=== PATIENT | female | born 1955 | race Caucasian/White ===

== ENCOUNTER 2017-12-20 21:19 | Emergency (ER) | payer BC ==
[~2017-12-20] VITALS: Ht 170.2 cm; Wt 70.3 kg
[~2017-12-20 21:19] MED LIST: CARB100CH; ERGO400 PO; HYDACE5 PO; LANS15EC; NAPR500 PO; OXYACE5T PO; Percocet 5-3251 EACH PO; RANI150 PO; RXHYDACE PO; SIMV10 PO
[2017-12-20] MEDS ORDERED: Lisinopril2.5 MG (21:24)
[2017-12-20] MEDS ORDERED: VITAMIN D10000 UNIT PO (21:25)
[2017-12-20 21:52] LABS: BASOPHILS ABSOLUTE AUTO 0.06 K/mm3 (0.00-0.23); BASOPHILS PERCENT AUTO 0 % (0-2); EOSINOPHILS ABSOLUTE AUTO 0.08 K/mm3 (0.00-0.68); EOSINOPHILS PERCENT AUTO 1 % (0-6); Hematocrit 39.9 % (33.0-51.0); Hemoglobin 13.8 g/dL (11.5-16.0); IMMATURE GRAN ABSOLUTE AUTO 0.05 K/mm3 (0.00-0.10); IMMATURE GRAN PERCENT AUTO 0 % (0-1); LYMPHOCYTES ABSOLUTE AUTO 2.23 K/mm3 (0.84-5.20); LYMPHOCYTES PERCENT AUTO 15 % (21-46); MONOCYTES ABSOLUTE AUTO 0.92 K/mm3 (0.16-1.47); MONOCYTES PERCENT AUTO 6 % (4-13); Mean Corpuscular HGB 31.7 pg (26.0-34.0); Mean Corpuscular HGB Conc 34.6 g/dL (31.5-36.5); Mean Corpuscular Volume 92 fL (80-100); Mean Platelet Volume 11.6 fL (9.1-12.4); NEUTROPHILS ABSOLUTE AUTO 11.32 K/mm3 (1.96-9.15); NEUTROPHILS PERCENT AUTO 77 % (41-73); Platelet Count 259 K/mm3 (150-400); RDW Coefficient Variation 12.5 % (11.7-14.2); RDW Standard Deviation 42.4 fL (35.1-46.3); Red Blood Cell Count 4.35 M/mm3 (3.80-5.20); White Blood Cell Count 14.66 K/mm3 (4.00-11.30)
[2017-12-20 22:06] LABS: Alanine Aminotransfer (ALT/SGP 67 U/L (12-78); Albumin, Blood 3.5 g/dL (3.4-5.0); Alk Phos 87 U/L (50-136); Anion Gap 9 mmol/L (6-16); Aspartate Aminotrans (AST/SGOT 43 U/L (12-37); Bilirubin, Total 0.4 mg/dL (0.1-1.0); Blood Urea Nitrogen 13 mg/dL (8-24); Bun/Creatinine Ratio 14.2 (12.0-20.0); CO2, Blood 25 mmol/L (21-32); Calcium, Blood 8.8 mg/dL (8.5-10.1); Chloride, Blood 109 mmol/L (98-108); Creatinine, Blood 0.92 mg/dL (0.40-1.00); Globulin, Blood 3.5 g/dL (2.2-4.0); Glomerular Filtration Rate >60 (60-); Glucose, Blood 139 mg/dL (70-99); Potassium, Blood 3.4 mmol/L (3.5-5.5); Sodium, Blood 143 mmol/L (136-145); Troponin I <0.015 ng/mL (0.000-0.040)
== END 2017-12-20 23:23 | disposition home or self-care (01) ==
LOC: ER 21:19
PROVIDERS: Emergency Medicine
DX: R07.89 Other chest pain (principal); M25.512 Pain in left shoulder; E78.5 Hyperlipidemia, unspecified; F17.210 Nicotine dependence, cigarettes, uncomplicated; Z88.6 Allergy status to analgesic agent; Z79.899 Other long term (current) drug therapy
CPT/HCPCS: 36415; 71046; 73030; 80053; 83880; 84484; 85025; 93005; 93010; 96374; 99284; J1885

== ENCOUNTER 2018-05-29 07:59 | Emergency (ER) | payer BC ==
[~2018-05-29] VITALS: Ht 170.2 cm; Wt 68.0 kg
[~2018-05-29 07:59] MED LIST changes: +Lisinopril2.5 MG; +VITAMIN D10000 UNIT PO
[2018-05-29] MEDS ORDERED: Cyclobenzaprine5 MG PO (08:26)
[2018-05-29] MEDS ORDERED: ALPR.25 PO (08:26)
[2018-05-29] MEDS ORDERED: EC-Naprosyn500 MG PO (10:45)
[2018-05-29] MEDS ORDERED: Norco 10-325 T1 EACH PO (10:45)
[2018-05-29] MEDS ORDERED: Zofran4 MG PO (10:45)
[2018-05-29] MEDS ORDERED: CEPH500 PO (12:30)
== END 2018-05-29 11:01 | disposition home or self-care (01) ==
LOC: ER 07:59
DX: M51.34 Other intervertebral disc degeneration, thoracic region (principal); F17.210 Nicotine dependence, cigarettes, uncomplicated; Z88.6 Allergy status to analgesic agent; Z79.899 Other long term (current) drug therapy
CPT/HCPCS: 71101; 72080; 72100; 96372; 99283-25; J1170; J2550

== ENCOUNTER 2018-05-29 11:15 | Emergency (ER) | payer OTHER, BC ==
[~2018-05-29] VITALS: Ht 170.2 cm; Wt 68.0 kg
[~2018-05-29 11:15] MED LIST changes: +ALPR.25 PO; +Cyclobenzaprine5 MG PO; +EC-Naprosyn500 MG PO; +Norco 10-325 T1 EACH PO; +Zofran4 MG PO
[2018-05-29] MEDS ORDERED: CEPH500 PO (12:30)
== END 2018-05-29 12:39 | disposition home or self-care (01) ==
LOC: ER 11:15
DX: S67.192A Crushing injury of right middle finger, initial encounter (principal); S67.194A Crushing injury of right ring finger, initial encounter; S67.196A Crushing injury of right little finger, initial encounter; S61.212A Laceration without foreign body of right middle finger without damage to nail, initial encounter; S61.214A Laceration without foreign body of right ring finger without damage to nail, initial encounter; S61.216A Laceration without foreign body of right little finger without damage to nail, initial encounter; W23.0XXA Caught, crushed, jammed, or pinched between moving objects, initial encounter; Z88.8 Allergy status to other drugs, medicaments and biological substances; Z79.899 Other long term (current) drug therapy; I10 Essential (primary) hypertension; E78.00 Pure hypercholesterolemia, unspecified; F17.210 Nicotine dependence, cigarettes, uncomplicated
CPT/HCPCS: 12001; 73130; 90471; 90714; 99283-25

== ENCOUNTER 2022-12-25 09:36 | Day surgery (SDC) | payer OTHER ==
[~2022-12-25] VITALS: Ht 170.2 cm; Wt 69.6 kg
[~2022-12-25 09:36] MED LIST changes: +CEPH500 PO
--- NOTE | 2022-12-25 10:09 | NUR ---
12/25/22 1009 Myriam Garg AT 1005 PLEDGET AT 1007
[2022-12-25 11:14] VITALS: BP 139/63
--- NOTE | 2022-12-25 11:39 | NUR ---
12/25/22 1139 Tj Torres IV REMOVED INTACT. SITE WNL.
== END 2022-12-25 11:30 | disposition home or self-care (01) ==
LOC: ORSCSDS 09:36
PROVIDERS: Ophthalmology
PROC: 08DK3ZZ Extraction of Left Lens, Percutaneous Approach (ICD-10-PCS; principal; 2022-12-25 11:00)
DX: H25.13 Age-related nuclear cataract, bilateral (principal); I10 Essential (primary) hypertension; G50.0 Trigeminal neuralgia; F17.210 Nicotine dependence, cigarettes, uncomplicated; Z79.899 Other long term (current) drug therapy
CPT/HCPCS: J2250; J3010; J3301; J7040; V2632

== ENCOUNTER 2023-01-01 09:39 | Day surgery (SDC) | payer OTHER ==
[~2023-01-01] VITALS: Ht 170.2 cm; Wt 69.6 kg
[2023-01-01 11:14] VITALS: BP 128/60
--- NOTE | 2023-01-01 11:21 | NUR ---
01/01/23 1121 Tj Torres IV REMOVED INTACT. SITE WNL.
== END 2023-01-01 11:28 | disposition home or self-care (01) ==
LOC: ORSCSDS 09:39
PROVIDERS: Ophthalmology
PROC: 08DJ3ZZ Extraction of Right Lens, Percutaneous Approach (ICD-10-PCS; principal; 2023-01-01 11:00)
DX: H25.11 Age-related nuclear cataract, right eye (principal); Z96.1 Presence of intraocular lens; I10 Essential (primary) hypertension; F17.210 Nicotine dependence, cigarettes, uncomplicated; Z79.899 Other long term (current) drug therapy
CPT/HCPCS: J1100; J2250; J2405; J3010; J3301; J7040; V2632

== ENCOUNTER 2023-05-27 12:44 | Inpatient (IN) | payer OTHER ==
[~2023-05-27] VITALS: Ht 170.2 cm; Wt 72.1 kg
[~2023-05-27 12:44] MED LIST changes: -Lisinopril2.5 MG; +Prinivil10 MG PO; -SIMV10 PO; +Zocor20 MG PO
[2023-05-27 13:42] LABS: Albumin, Blood 2.7 g/dL (3.4-5.0); Albumin/Globulin Ratio 0.7 (0.8-1.8); Bilirubin, Total 0.8 mg/dL (0.1-1.0); Calcium, Blood 8.7 mg/dL (8.5-10.1); Creatinine, Blood 0.71 mg/dL (0.40-1.00); Globulin, Blood 4.1 g/dL (2.2-4.0); Magnesium, Blood 2.3 mg/dL (1.6-2.4); Potassium, Blood 4.5 mmol/L (3.5-5.5); Total Protein, Blood 6.8 g/dL (6.4-8.2)
[2023-05-27 14:25] LABS: BASOPHILS ABSOLUTE AUTO 0.05 K/mm3 (0.00-0.23); BASOPHILS PERCENT AUTO 0 % (0-2); EOSINOPHILS PERCENT AUTO 0 % (0-6); Hematocrit 39.8 % (33.0-51.0); Hemoglobin 13.3 g/dL (11.5-16.0); IMMATURE GRAN ABSOLUTE AUTO 0.07 K/mm3 (0.00-0.10); IMMATURE GRAN PERCENT AUTO 0 % (0-1); LYMPHOCYTES ABSOLUTE AUTO 1.19 K/mm3 (0.84-5.20); LYMPHOCYTES PERCENT AUTO 7 % (21-46); MONOCYTES ABSOLUTE AUTO 1.56 K/mm3 (0.16-1.47); MONOCYTES PERCENT AUTO 10 % (4-13); Mean Corpuscular HGB 29.8 pg (26.0-34.0); Mean Corpuscular HGB Conc 33.4 g/dL (31.5-36.5); Mean Corpuscular Volume 89 fL (80-100); Mean Platelet Volume 11.3 fL (9.1-12.4); NEUTROPHILS ABSOLUTE AUTO 13.48 K/mm3 (1.96-9.15); NEUTROPHILS PERCENT AUTO 83 % (41-73); Platelet Count 363 K/mm3 (150-400); RDW Coefficient Variation 12.4 % (11.7-14.2); RDW Standard Deviation 40.8 fL (35.1-46.3); Red Blood Cell Count 4.47 M/mm3 (3.80-5.20); White Blood Cell Count 16.35 K/mm3 (4.00-11.30)
[2023-05-27 18:19] LABS: Source, Urine Clean Catch
[2023-05-27 18:22] LABS: Appearance, Urine Cloudy (Clear); Bilirubin, Urine Neg (Neg); Blood, Urine 2+ (Neg); Color, Urine Yellow (P-Yellow); Glucose Qualitative, Urine Neg (Neg); Ketones, Urine 1+ (Neg); Leukocyte Esterase, Urine 1+ (Neg); Nitrite, Urine Neg (Neg); Protein, Urine 2+ (Neg); Specific Gravity, Urine 1.015 (1.003-1.022); Urobilinogen, Urine 4+ (Normal)
[2023-05-27 18:34] LABS: Bacteria Many /hpf; Squamous Epithelial Cells Rare /hpf (Few)
[2023-05-27] MEDS ORDERED: HYDROCODONE-AC1 EA19 PO (21:03)
[2023-05-27 21:18] VITALS: BP 148/67
[2023-05-27] MEDS ORDERED: THERA-D2000 UNIT PO (21:35)
[2023-05-27] MEDS ORDERED: ARTIFICIAL TEAR15 M2 BOTHEYES (21:36)
[2023-05-28] VITALS (8 sets, daily range): BP systolic 100–130; BP diastolic 48–89
--- NOTE | 2023-05-28 02:12 | NUR ---
05/27/232146 PT ARRIVED TO ROOM FROM ER IN STABLE CONDITION. PT REPORTS PAIN OF 7/10 IN SHOULDERS AND CHEST PRESSURE AT 5/10. TROPONINS ARE NOT ELEVATED AT THIS TIME. PT WAS JUST MEDICATED WITH NORCO AT 1930. PT DENIES NEED FOR PAIN MEDS AT THIS TIME. PT ENCOURAGED TO CALL IF THAT CHANGES. SCD'S PLACED ON PT. TELE NSR AT 78. NO OTHER APPARENT SIGNS OF DISTRESS. CALL LIGHT IS IN REACH.
--- NOTE | 2023-05-28 02:14 | NUR ---
0000 PT LYING IN BED, EYES CLOSED. APPEARS TO BE RESTING. BREATHING IS EVEN, UNLABORED. NO APPARENT SIGNS OF DISTRESS. CALL LIGHT IS IN REACH.
--- NOTE | 2023-05-28 02:15 | NUR ---
0124 PT REQUESTED AND RECIEVED PAIN MEDS, WILL EVAL FOR EFFECT. NO OTHER APPARENT SIGNS OF DISTRESS. CALL LIGHT IS IN REACH.
[2023-05-28 05:32] LABS: BASOPHILS ABSOLUTE AUTO 0.04 K/mm3 (0.00-0.23); BASOPHILS PERCENT AUTO 0 % (0-2); EOSINOPHILS ABSOLUTE AUTO 0.02 K/mm3 (0.00-0.68); EOSINOPHILS PERCENT AUTO 0 % (0-6); Hematocrit 36.5 % (33.0-51.0); Hemoglobin 12.3 g/dL (11.5-16.0); IMMATURE GRAN ABSOLUTE AUTO 0.06 K/mm3 (0.00-0.10); IMMATURE GRAN PERCENT AUTO 0 % (0-1); LYMPHOCYTES ABSOLUTE AUTO 2.03 K/mm3 (0.84-5.20); LYMPHOCYTES PERCENT AUTO 13 % (21-46); MONOCYTES ABSOLUTE AUTO 1.69 K/mm3 (0.16-1.47); MONOCYTES PERCENT AUTO 11 % (4-13); Mean Corpuscular HGB 29.7 pg (26.0-34.0); Mean Corpuscular HGB Conc 33.7 g/dL (31.5-36.5); Mean Corpuscular Volume 88 fL (80-100); Mean Platelet Volume 11.8 fL (9.1-12.4); NEUTROPHILS ABSOLUTE AUTO 12.02 K/mm3 (1.96-9.15); NEUTROPHILS PERCENT AUTO 76 % (41-73); Platelet Count 314 K/mm3 (150-400); RDW Coefficient Variation 12.7 % (11.7-14.2); RDW Standard Deviation 41.1 fL (35.1-46.3); Red Blood Cell Count 4.14 M/mm3 (3.80-5.20); White Blood Cell Count 15.86 K/mm3 (4.00-11.30)
--- NOTE | 2023-05-28 06:45 | NUR ---
0400 PT LYING IN BED, EYES CLOSED, WAKES EASILY TO VERBAL STIMULI. NO APPARENT SIGNS OF DISTRESS. CALL LIGHT IS IN REACH.
--- NOTE | 2023-05-28 06:46 | NUR ---
PT IS AAO X 4, ON RA, REPORTS SHOULDER PAIN AND CHEST PRESSURE, GOT NORCO X 3. TELE NSR.
--- NOTE | 2023-05-28 06:47 | NUR ---
0524 PT REQUESTED AND RECIEVED PAIN MEDS, WILL EVAL FOR EFFECT. NO OTHER APPARENT SIGNS OF DISTRESS. CALL LIGHT IS IN REACH. NO OTHER CHANGES THIS SHIFT.
--- NOTE | 2023-05-28 09:20 | NUR ---
Transfer NOte: Pt arrived to room [id number] via bed. A/O x4. Pale, diapheretic. HR reg at this time, NSR rate in the 80's. BP stable. Pt C/O chest pressure that is much worse with laying back and deep breathing. Pt sat forward and pain improved. Pt has low grade temp 100.5. Will medicate with tylenol per orders. Ice pack applied to back of neck, pt states this feels good. Family and patient oriented to room, unit, plan of care and different tests that are planned including stress test, echo and CT PE study. Pt NPO for stress test. Call light in reach. Denies needs. Will continue to monitor.
--- NOTE | 2023-05-28 09:47 | NUR ---
[facility] PT HR 174 BPM. APPEARED TO BE SVT. CHECKED MONITOR. WENT TO PT. SHE WAS PALE, HOLDING HER HEAD AND STATED, " I DON'T FEEL GOOD," EKG STARTED. VS STARTED. DR VASQUES CALLED. PT CONVERTED TO NSR BEFORE EKG COMPLETED. DR VASQUES AT BEDSIDE. TRANSFER TO PCU REQUESTED. EXPLAINED M,OVE TO FAMILY. TRANSFER VIA BED TO PCU 13. BEDSIDE REPORT GIVEN TO KHANG AMOS. PT MAINTAINED NSR DURING MOVE. CONTINUE POC.,
--- NOTE | 2023-05-28 17:37 | NUR ---
SHIFT SUMMARY: Pt sitting up in bed at this time with family at bedside. States that she is feeling much better this evening. HR has remained in NSR in the 70's. BP stable. Has been afebrial this afternoon. BIox has remained >90% on RA. Pt does have CP with some activity and deep breathing, but this subsides quickly without any intervention. Pt had the stress portion of her stress test today, echo and CT-PE study. Tolerated all studies well. Denies needs at this time. Stable at end of shift. Will report to night RN.
[2023-05-29 03:27] VITALS: BP 107/64
[2023-05-29 04:14] LABS: Hematocrit 36.4 % (33.0-51.0); Hemoglobin 12.1 g/dL (11.5-16.0); Mean Corpuscular HGB 29.7 pg (26.0-34.0); Mean Corpuscular HGB Conc 33.2 g/dL (31.5-36.5); Mean Corpuscular Volume 89 fL (80-100); Mean Platelet Volume 11.8 fL (9.1-12.4); Platelet Count 331 K/mm3 (150-400); RDW Coefficient Variation 12.7 % (11.7-14.2); Red Blood Cell Count 4.08 M/mm3 (3.80-5.20); White Blood Cell Count 15.58 K/mm3 (4.00-11.30)
--- NOTE | 2023-05-29 04:54 | NUR ---
shift summary this rn assumed care at 1900. vital signs stable. tele sr. patient is alert and oriented x4. perrla. patient reports off and on shoulder pain throughout this rn shift. pain meds received per emar. patient reports no chest pain/pressure. patient reports no shortness of breath. see shift assessment for further detials. no acue changes this shift. patient is able to make needs known and uses call light appropriately. call light within reach.
[2023-05-29 05:38] LABS: Anion Gap 6 mmol/L (6-16); Blood Urea Nitrogen 10 mg/dL (8-24); Bun/Creatinine Ratio 14.1 (12.0-20.0); CO2, Blood 26 mmol/L (21-32); Calcium, Blood 8.6 mg/dL (8.5-10.1); Chloride, Blood 108 mmol/L (98-108); Creatinine, Blood 0.71 mg/dL (0.40-1.00); Glomerular Filtration Rate 93 (60-); Glucose, Blood 104 mg/dL (70-99); Potassium, Blood 3.8 mmol/L (3.5-5.5); Sodium, Blood 140 mmol/L (136-145)
[2023-05-29 05:50] LABS: C-Reactive Protein, High Sens. >190.000 mg/L (0.000-3.000)
[2023-05-29 09:15] VITALS: BP 132/43
[2023-05-29] MEDS ORDERED: CEPH500 PO (13:15)
[2023-05-29] MEDS ORDERED: COLCHICINE0.6 MG PO (13:15)
[2023-05-29] MEDS ORDERED: METO25ER PO (13:16)
--- NOTE | 2023-05-29 13:41 | NUR ---
DISCHARGE NOTE PT DC'D HOME IN THE CARE OF HER VIA WHEELCHAIR TO VEHICLE. DISCHARGE EDUCATION COMPLETED INCLUDING FOLLOW UP APPOINTMENTS AND MEDICATION LIST. PT'S AT BEDSIDE FOR TEACHING WELL. BOTH STATE THEY HAVE NO QUESTIONS OR CONCERNS ABOUT DISCHARGE EDUCATION. IV TO LFA REMOVED, CATHETER INTACT. PT ABLE TO AMBULATE IN ROOM WITH MINIMAL ASSISTANCE. ALL BELONGINGS SENT HOME WITH PT. NO FURTHER DISCHARGE NEEDS IDENTIFIED AT THIS TIME.
[2023-05-29 13:47] VITALS: BP 118/54
[2023-05-31 08:08] LABS: COMPLEMENT C3, SERUM 203 mg/dL (82-167); COMPLEMENT C4, SERUM 15 mg/dL (12-38)
[2023-05-31 11:08] LABS: ANA DIRECT Negative (Negative); ANTI-DSDNA ANTIBODIES 2 IU/mL (0-9); RNP ANTIBODIES 0.7 AI (0.0-0.9); SJOGREN'S ANTI-SS-A <0.2 AI (0.0-0.9); SJOGREN'S ANTI-SS-B <0.2 AI (0.0-0.9); SMITH ANTIBODIES <0.2 AI (0.0-0.9)
== END 2023-05-29 13:45 | disposition home or self-care (01) | DRG 315 ==
LOC: ER 12:44 → MEDS 12:45 → PCU 05-28 09:29
PROVIDERS: Emergency Medicine; Internal Medicine; Nurse Practitioner Acute Care; Student in an Organized Health Care Education/Training Program; ADMIT Internal Medicine
DX: I30.0 Acute nonspecific idiopathic pericarditis (principal); I47.10 Supraventricular tachycardia, unspecified; N39.0 Urinary tract infection, site not specified; I48.0 Paroxysmal atrial fibrillation; R55 Syncope and collapse; G89.29 Other chronic pain; I10 Essential (primary) hypertension; B96.20 Unspecified Escherichia coli [E. coli] as the cause of diseases classified elsewhere; F17.211 Nicotine dependence, cigarettes, in remission; R77.8 Other specified abnormalities of plasma proteins; E78.5 Hyperlipidemia, unspecified; Z88.8 Allergy status to other drugs, medicaments and biological substances; Z79.811 Long term (current) use of aromatase inhibitors; Z79.891 Long term (current) use of opiate analgesic; Z79.899 Other long term (current) drug therapy
CPT/HCPCS: 36415; 71045; 71046; 71260; 78452; 80048; 80053; 81001; 83735; 84145; 84443; 84484; 85025; 85027; 85651; 86141; 86160; 86225; 86235; 86430; 87077; 87086; 87186; 93005; 93010; 93017; 93246; 96365; 96366; 96372; 99285-25; A9270; A9500; C8929; G0378; J0696; J0706; J1650; J2405; J2785; J7030; Q9957; Q9967

== ENCOUNTER 2023-06-07 18:30 | Inpatient (IN) | payer OTHER ==
[~2023-06-07] VITALS: Ht 170.2 cm; Wt 71.3 kg
[~2023-06-07 18:30] MED LIST changes: +ARTIFICIAL TEAR15 M2 BOTHEYES; +COLCHICINE0.6 MG PO; +HYDROCODONE-AC1 EA19 PO; +METO25ER PO; +THERA-D2000 UNIT PO
[2023-06-07] MEDS ORDERED: COLCRYS0.6 M1 PO (18:42)
[2023-06-07] MEDS ORDERED: Simvastatin20 MG PO (18:43)
[2023-06-07 19:08] LABS: Source, Urine Clean Catch
[2023-06-07 19:09] LABS: BASOPHILS ABSOLUTE AUTO 0.05 K/mm3 (0.00-0.23); BASOPHILS PERCENT AUTO 0 % (0-2); EOSINOPHILS ABSOLUTE AUTO 0.02 K/mm3 (0.00-0.68); EOSINOPHILS PERCENT AUTO 0 % (0-6); Hemoglobin 13.3 g/dL (11.5-16.0); IMMATURE GRAN ABSOLUTE AUTO 0.16 K/mm3 (0.00-0.10); IMMATURE GRAN PERCENT AUTO 1 % (0-1); LYMPHOCYTES ABSOLUTE AUTO 2.29 K/mm3 (0.84-5.20); LYMPHOCYTES PERCENT AUTO 10 % (21-46); MONOCYTES ABSOLUTE AUTO 2.11 K/mm3 (0.16-1.47); MONOCYTES PERCENT AUTO 9 % (4-13); Mean Corpuscular HGB 29.8 pg (26.0-34.0); Mean Corpuscular HGB Conc 34.1 g/dL (31.5-36.5); Mean Corpuscular Volume 87 fL (80-100); Mean Platelet Volume 11.5 fL (9.1-12.4); NEUTROPHILS ABSOLUTE AUTO 18.48 K/mm3 (1.96-9.15); NEUTROPHILS PERCENT AUTO 80 % (41-73); Platelet Count 461 K/mm3 (150-400); RDW Coefficient Variation 13.3 % (11.7-14.2); RDW Standard Deviation 42.6 fL (35.1-46.3); Red Blood Cell Count 4.46 M/mm3 (3.80-5.20); White Blood Cell Count 23.11 K/mm3 (4.00-11.30)
[2023-06-07 19:18] LABS: D-Dimer, Quantitative 3.34 mg/L FEU (0.00-0.52); International Normalized Ratio 1.27; Prothrombin Time Results 13.2 Sec (9.7-11.5)
[2023-06-07 19:26] LABS: Free Thyroxine 1.26 ng/dL (0.70-1.60); Magnesium, Blood 1.9 mg/dL (1.6-2.4)
[2023-06-07 19:30] LABS: Albumin, Blood 2.3 g/dL (3.4-5.0); Albumin/Globulin Ratio 0.5 (0.8-1.8); Bilirubin, Total 0.6 mg/dL (0.1-1.0); Bun/Creatinine Ratio 26.8 (12.0-20.0); Calcium, Blood 8.6 mg/dL (8.5-10.1); Creatinine, Blood 0.6 mg/dL (0.40-1.00); Phosphorus, Blood 2.5 mg/dL (2.5-4.9); Potassium, Blood 4.2 mmol/L (3.5-5.5); Thyroid Stimulating Hormone 0.552 uIU/mL (0.360-4.800); Total Protein, Blood 7.3 g/dL (6.4-8.2)
[2023-06-07 19:41] LABS: Appearance, Urine Clear (Clear); Bilirubin, Urine Neg (Neg); Blood, Urine 1+ (Neg); Glucose Qualitative, Urine Neg (Neg); Ketones, Urine Neg (Neg); Leukocyte Esterase, Urine Neg (Neg); Nitrite, Urine Neg (Neg); Protein, Urine Neg (Neg); Urobilinogen, Urine NORM (Normal); pH, Urine 6.5 (5.0-8.0)
[2023-06-07 19:51] LABS: Influenza A, PCR NEGATIVE (NEGATIVE); Influenza B, PCR NEGATIVE (NEGATIVE); Resp Syncytial Virus, PCR NEGATIVE (NEGATIVE); SARS-Cov-2 (COVID-19) PCR, MMC NEGATIVE (NEGATIVE)
[2023-06-07 20:28] LABS: Color, Urine Pale Yellow (P-Yellow)
[2023-06-07 20:30] LABS: Bacteria Rare /hpf; Red Blood Cells, Urine 0-2 /hpf (0-2); Squamous Epithelial Cells Few /hpf (Few); White Blood Cells, Urine 0-2 /hpf (0-5)
[2023-06-08] VITALS (61 sets, daily range): BP systolic 73–135; BP diastolic 42–83
[2023-06-08] MEDS ORDERED: HYDROCODONE-AC1 EA19 PO (02:14)
[2023-06-08 04:07] LABS: Hematocrit 37.6 % (33.0-51.0); Hemoglobin 12.9 g/dL (11.5-16.0); Mean Corpuscular HGB 29.9 pg (26.0-34.0); Mean Corpuscular HGB Conc 34.3 g/dL (31.5-36.5); Mean Corpuscular Volume 87 fL (80-100); Mean Platelet Volume 11.4 fL (9.1-12.4); Platelet Count 465 K/mm3 (150-400); RDW Coefficient Variation 13.3 % (11.7-14.2); RDW Standard Deviation 42.6 fL (35.1-46.3); Red Blood Cell Count 4.32 M/mm3 (3.80-5.20)
[2023-06-08 04:24] LABS: Bun/Creatinine Ratio 16.5 (12.0-20.0); Calcium, Blood 7.9 mg/dL (8.5-10.1); Creatinine, Blood 0.67 mg/dL (0.40-1.00); Potassium, Blood 3.8 mmol/L (3.5-5.5)
--- NOTE | 2023-06-08 07:15 | NUR ---
AM Assessment: Pt resting in bed with daughter at bedside. HR shows NSR in the 60's at this time. BP Soft (see VS). Pt denies dizziness or lightheadedness. C/O some chest and back pain/pressure that improves when sitting forward but gets worse with deep breathing. States that it has improved greatly since she converted to NSR last noc. IV heparin running per orders but placed on hold for thoracentisis scheduled at 1130. BT positive. Pt states that she has had diarrhea at home but has not had a BM here. Slight rash on her both left and right sides, red, non-raised small dots. Pt deines pain or itching on this amanda. General edema to bilateral hands which patient states is new. No other changes or needs. Call light in reach. Will monitor.
--- NOTE | 2023-06-08 07:20 | NUR ---
SHIFT SUMMARY: A&OX4, REPORTS FEELING FATIGUED WHEN ADMITTED TO PCU 2 FROM ED. APPEARS PALE AND DIAPHORETIC. REPORTS INTERMITTENT C/P AND CHEST PRESSURE. REPORTS FEELING SOB WITH SATS MAINTAINED > 92% ON RA. RESPIRATIONS APPEAR EVEN AND UNLABORED. HR A-FLUTTER 130-150'S. AMNIODERONE GTT AND HEPRIN GTT STARTED ORDERED. RATE CONVERTED AT APPROXIMATELY 0300. PT REPORTS IMPROVED SOB AND CHEST PRESSURE. DENIES C/P. BP CONTINUES TO BE SOFT WITH MAP > 65. DR. FAUST CALLED AT APPROXIMATELY 0400, REPORTING PT BP INCREASINGLY SOFT WITH MAP < 65, SEE RECORDED VITAL SIGNS. AMNIODERONE STOPPED. 500 ML BOLUS X [address] FAUST'S INSTRUCTIONS. PT REMAINS ASYMPTOMATIC OF SOFT BP'S. CALL LIGHT IN REACH, BED IN LOW POSITION.
[2023-06-08 12:29] LABS: Automated BF RBC Count 0.008 M/mm3 (0-0); Automated BF WBC Count 2.948 K/mm3 (0-999)
[2023-06-08 12:31] LABS: Body Fluid WBC Count 2948 /mm3 (0-999); RBC Count, Body Fluid 8000 /mm3 (0-0)
[2023-06-08 12:47] LABS: Lactate Dehydrogenase, Body Fl 142 U/L; Protein, Body Fluid 4.1 g/dL
[2023-06-08 13:26] LABS: Total Cell Count, Body Fluid 100
[2023-06-08 13:27] LABS: Appearance, Body Fluid Hazy (Clear); Color, Body Fluid Yellow (None-Yellow)
--- NOTE | 2023-06-08 15:10 | NUR ---
transfer of care: Report given to DANDRE Hawthorne. Stable at time of transfer of care. Pt had thoracentisis at around 1130 with 750ml removed. BP has been stable. HR has remained in NSR rate in the 70's at this time. Pt does have some increased pain in the L side and chest. Physician aware and new orders were obtained. Medicated per orders. No other changes at this time. Call light in reach.
--- NOTE | 2023-06-08 17:07 | NUR ---
Shift Summary Assumed care of patient at approx 1500; no acute changes noted. Pt continues to report pain to left back/shoulder, medicated per emar. Other vss. Will continue to monitor.
[2023-06-09 03:51] VITALS: BP 85/56
--- NOTE | 2023-06-09 05:03 | NUR ---
FACE MAN SUMMARY THROUGHOUT SHIFT PT A/OX4 AND PLEASANT. AROUND 2300 PT BEGAN TO COMPLAIN OF SEVERE PAIN IN LEFT BACK AND CHEST AND UNABLE TO TAKE DEEP BREATHS DUE TO PAIN, AT THIS TIME PTS SPO2 DOWN TO 80S AND PLACED ON 2LO2 FOR COMFORT, THOUGH TRANSITIONED BACK TO ROOM AIR AT TIME OF THIS NOTE. PROVIDER WAS CALLED AND TELEPHONE ORDERS PLACED FOR 1V CXR AND 25 MCG IV FENTANYL ONE TIME DOSE. PT RESPONDED WELL AND PO PAIN MEDICATED REINITIATED. PT BLOOD PRESSURES HAVE BEEN LOW AND PROVIDER CALLED AND AWARE. PT ASYMPTOMATIC WITH LOW BLOOD PRESSURES AND MAPS HAVE BEEN >60. NO OTHER ACUTE CHANGES.
[2023-06-09 07:52] VITALS: BP 115/62
[2023-06-09 11:35] VITALS: BP 109/54
[2023-06-09 16:19] VITALS: BP 132/71
--- NOTE | 2023-06-09 17:21 | NUR ---
SHIFT SUMMARY. PT HAS BEEN DOING WELL THIS SHIFT. AOX4, PLEASANT, COOPERATIVE WITH CARE. HAS HAD SOMEWHAT IMPROVED PO INTAKE BASED ON VERY LITTLE PO INTAKE NOTED ON SHIFT REPORT. PAIN HAS BEEN MOSTLY ADEQUATELY MANAGED ON CURRENT MEDICATION REGIMEN WITH OCCASIONAL BREAKTHROUGH PAIN, MOSTLY ASSOCIATED WITH LAUGHING PER PT. SBA TO COMMODE. SATURATING WELL ON ROOM AIR. VITALS HAVE REMAINED WNL THIS SHIFT, NO FEVER THUS FAR. FAMILY HAS BEEN AT BEDSIDE THROUGHOUT SHIFT. PT CALLS APPROPRIATELY AND IS ABLE TO MAKE NEEDS KNOWN. BED LOCKED IN LOWEST POSITION. CALL LIGHT LEFT WITHIN REACH
[2023-06-09 19:45] VITALS: BP 143/66
--- NOTE | 2023-06-09 22:20 | NUR ---
ASSUMED CARE THIS RN ASSUMED CARE OF PT APPROX 1900. BEDSIDE REPORT TAKEN FROM JULIO RN. PT AWAKE CONVERSING W/ FAMILY MEMBERS. A&OX4, ABLE TO COMMUNICATE NEEDS WITH STAFF. MINIMAL PO INTAKE AT DINNER. VSS. SBP 143, HR 70'S. NSR ON TELE. DENIES CHEST PAIN/PRESSURE. SPO2 >92% ON RA WHILE AWAKE, 2L O2 APPLIED WHILE PT SLEEPING DUE TO DESATS TO HIGH 80'S. ORAL TEMP 100.1; TYLENOL ADMINISTERED VIA NORCO PER EMAR. PT REPORTS 8-9/10 PAIN IN LEFT RIB REGION, MANAGED PER EMAR. SBA TO BSC AT START OF SHIFT. NO OTHER NEEDS. CALL LIGHT WITHIN REACH, BED IN LOWEST POSITION.
[2023-06-09 23:27] VITALS: BP 130/58
[2023-06-10 04:20] VITALS: BP 104/63
[2023-06-10 04:50] LABS: BASOPHILS ABSOLUTE AUTO 0.04 K/mm3 (0.00-0.23); BASOPHILS PERCENT AUTO 0 % (0-2); EOSINOPHILS ABSOLUTE AUTO 0.08 K/mm3 (0.00-0.68); EOSINOPHILS PERCENT AUTO 0 % (0-6); Hematocrit 32.1 % (33.0-51.0); Hemoglobin 10.6 g/dL (11.5-16.0); IMMATURE GRAN ABSOLUTE AUTO 0.11 K/mm3 (0.00-0.10); IMMATURE GRAN PERCENT AUTO 1 % (0-1); LYMPHOCYTES PERCENT AUTO 10 % (21-46); MONOCYTES ABSOLUTE AUTO 1.99 K/mm3 (0.16-1.47); MONOCYTES PERCENT AUTO 10 % (4-13); Mean Corpuscular HGB 29.1 pg (26.0-34.0); Mean Corpuscular Volume 88 fL (80-100); NEUTROPHILS ABSOLUTE AUTO 15.02 K/mm3 (1.96-9.15); NEUTROPHILS PERCENT AUTO 78 % (41-73); Platelet Count 384 K/mm3 (150-400); RDW Coefficient Variation 13.6 % (11.7-14.2); RDW Standard Deviation 44.3 fL (35.1-46.3); Red Blood Cell Count 3.64 M/mm3 (3.80-5.20); White Blood Cell Count 19.24 K/mm3 (4.00-11.30)
[2023-06-10 05:14] LABS: Albumin, Blood 1.9 g/dL (3.4-5.0); Anion Gap 5 mmol/L (6-16); Blood Urea Nitrogen 13 mg/dL (8-24); Bun/Creatinine Ratio 17.9 (12.0-20.0); CO2, Blood 25 mmol/L (21-32); Calcium, Blood 8.4 mg/dL (8.5-10.1); Chloride, Blood 107 mmol/L (98-108); Creatinine, Blood 0.73 mg/dL (0.40-1.00); Glomerular Filtration Rate 90 (60-); Glucose, Blood 121 mg/dL (70-99); Phosphorus, Blood 4.6 mg/dL (2.5-4.9); Potassium, Blood 4.1 mmol/L (3.5-5.5); Sodium, Blood 137 mmol/L (136-145)
--- NOTE | 2023-06-10 05:18 | NUR ---
END OF SHIFT NOTE NO ACUTE CHANGES FROM ASSUMPTION OF CARE NOTE. PT REMAINS A&OX4, CALLS APPROPRIATELY. HR 60-70'S, NSR ON TELE. BP STABLE, DENIES CHEST PAIN/PRESSURE. SPO2 >90% ON RA WHILE AWAKE, 2L NC APPLIED WHILE SLEEPING DUE TO DESATS INTO UPPER 80'S. UP TO BSC W/ 1P SBA. PT INDEPENDENTLY REPOSITIONING IN BED. PAIN MANAGED PER EMAR. CALL LIGHT WITHIN REACH, BED IN LOWEST POSITION.
[2023-06-10 08:12] VITALS: BP 111/57
[2023-06-10 09:44] VITALS: BP 103/56
--- NOTE | 2023-06-10 10:11 | NUR ---
AT ABOUT 0930, NOTIFCATION FROM [facility] THAT PT CONVERTED TO AFIB FROM NSR FOR ABOUT ~90 SECONDS BEFORE CONVERTING BACK TO NSR. VITALS TAKEN, WNL. PT REPORTS NO CHANGE IN CONDITION OTHER THAN FEELING TIRED FROM SHOWER. DENIED SOB, FATIGUE, DYSPNEA, CHEST PAIN/PRESSURE, ETC. PT CONVERTED TO AFIB FROM NSR AND THEN BACK TO NSR 2 MORE TIMES BEFORE 1000 WITH THE LONGEST EPISODE BEING ABOUT 120 SECONDS AT ~0950. CALLED DR. KAPOOR TO NOTIFY. DR. KAPOOR DIRECTED ME TO CALL DR. RIOJAS OFFICE TO INQUIRE ABOUT POSSIBLE MEDICATION CHANGE. CALLED DR. RIOJAS OFFICE AND LEFT MESSAGE WITH LAUNDRY CLERK TO CALL US BACK AT SOONEST POSSIBLE CONVENIENCE.
--- NOTE | 2023-06-10 10:17 | NUR ---
ASSUMPTION OF CARE AT 0710. PT IS AOX4, PLEASANT, COOPERATIVE WITH CARE. PAIN WAS ESCALATING THIS MORNING WITH PT RATING IT AT 9/10 BEFORE NORCO ADMINISTRATION WITH MORNING MEDICATIONS WHICH SHE SAYS HAS MADE PAIN MUCH MORE MANAGABLE. PAIN STILL SPORADICALLY PEAKS MOSTLY ASSOCIATED WITH DEEP BREATHING OR LAUGHING. PT TOOK A SHOWER THIS MORNING AND REPORTS FEELING MORE FATIGUED AFTER SHOWER. PT ALSO FEELS LIKE HER PO INTAKE HAS BEEN PROGRESSIVELY IMPROVING SINCE YESTERDAY. NOTIFICATION FROM [facility] THAT PT HAS BEEN HAVING SOME RYTHYM CHANGES STARTING AT ABOUT 0930 TODAY. SEE RELATED NOTE FOR EXPANDED DETAILS. ALL MORNING MEDICATIONS ADMINISTERED WITHOUT DIFFICULTY. AT BEDSIDE. PT COMFORTABLE IN CHAIR AT THIS TIME. CALL LIGHT LEFT WITHIN REACH.
--- NOTE | 2023-06-10 12:12 | NUR ---
LATE NOTE. SPOKE WITH DR. MOSES. DR. MOSES ORDERED ONE TIME 200 MG DOSE OF AMIODARONE WHICH WAS ADMINISTERED. ALSO INFORMED THAT CURRENT RYTHYM CHANGE ISSUES ARE LIKELY SECONDARY TO INSUFFICIENT PAIN MANAGEMENT AND RECOMMENDED BETTER PAIN CONTROL. CALLED AND SPOKE WITH DR. KAPOOR TO INFORM OF THIS AND SHE DCd NORCO TO REPLACE WITH 1-2 TABS OF PERCOCET Q4. DIRECTED THIS NURSE TO CALL HER IF PERCOCET PROVES TO BE INSUFFICIENT IN TERMS OF PAIN MANAGEMENT. ADMINISTERED FIRST TAB AND CONTINUING TO MONITOR AT THIS TIME.
[2023-06-10 16:30] VITALS: BP 118/70
--- NOTE | 2023-06-10 17:31 | NUR ---
SHIFT SUMMARY. PT HAS BEEN DOING WELL THROUGHOUT MOST OF AFTERNOON AFTER MAKING ADJUSTMENTS TO PAIN MEDICATION REGIMEN. DR. KAPOOR DISCONTINUED PERCOCET 5 MG 1-2 TABS Q4 IN FAVOR OF 10 MG 1-2 TABS Q4. PT HAS BEEN DOING BETTER ON THIS AND REPORTS LOWER PAIN GENERALLY THAN SHE HAD ON THE NORCO REGIMEN ALTHOUGH IT REMAINS EVER PRESENT TO SOME DEGREE. PT HAS BEEN IN CHAIR FOR MOST OF AFTERNOON WELL. WAS AT BEDSIDE UNTIL GOING HOME FOR THE NIGHT LATE IN THE AFTERNOON. PT DOES NOTE SOMEWHAT LOWER PO FOOD INTAKE THAN YESTERDAY ALTHOUGH SHE IS TRYING TO CONTINUE TO KEEP UP HER PO FLUID INTAKE. VITALS REMAIN STABLE. CONTINUES TO SAT WELL ON ROOM AIR. EPISODES OF CONVERTING TO AFIB HAVE SLOWED DOWN CONSIDERABLY SINCE PREVIOUS NOTE FROM EARLIER IN SHIFT. BED LOCKED IN LOWEST POSITION. CALL LIGHT LEFT WITHIN REACH.
[2023-06-10 20:10] VITALS: BP 114/63
[2023-06-11 03:40] VITALS: BP 115/74
[2023-06-11 04:14] LABS: BASOPHILS ABSOLUTE AUTO 0.04 K/mm3 (0.00-0.23); BASOPHILS PERCENT AUTO 0 % (0-2); EOSINOPHILS ABSOLUTE AUTO 0.07 K/mm3 (0.00-0.68); EOSINOPHILS PERCENT AUTO 0 % (0-6); Hematocrit 33.4 % (33.0-51.0); IMMATURE GRAN ABSOLUTE AUTO 0.15 K/mm3 (0.00-0.10); IMMATURE GRAN PERCENT AUTO 1 % (0-1); LYMPHOCYTES PERCENT AUTO 10 % (21-46); MONOCYTES ABSOLUTE AUTO 2.23 K/mm3 (0.16-1.47); MONOCYTES PERCENT AUTO 10 % (4-13); Mean Corpuscular HGB 29.8 pg (26.0-34.0); Mean Corpuscular HGB Conc 32.9 g/dL (31.5-36.5); Mean Corpuscular Volume 91 fL (80-100); Mean Platelet Volume 11.9 fL (9.1-12.4); NEUTROPHILS PERCENT AUTO 79 % (41-73); Platelet Count 465 K/mm3 (150-400); RDW Coefficient Variation 13.9 % (11.7-14.2); RDW Standard Deviation 46.1 fL (35.1-46.3); Red Blood Cell Count 3.69 M/mm3 (3.80-5.20); White Blood Cell Count 23.29 K/mm3 (4.00-11.30)
[2023-06-11 04:44] LABS: Anion Gap 8 mmol/L (6-16); Blood Urea Nitrogen 16 mg/dL (8-24); Bun/Creatinine Ratio 20.9 (12.0-20.0); CO2, Blood 25 mmol/L (21-32); Calcium, Blood 8.7 mg/dL (8.5-10.1); Chloride, Blood 101 mmol/L (98-108); Creatinine, Blood 0.77 mg/dL (0.40-1.00); Glomerular Filtration Rate 84 (60-); Glucose, Blood 140 mg/dL (70-99); Phosphorus, Blood 4.1 mg/dL (2.5-4.9); Potassium, Blood 4.1 mmol/L (3.5-5.5); Sodium, Blood 134 mmol/L (136-145)
--- NOTE | 2023-06-11 04:52 | NUR ---
END OF SHIFT NOTE NO ACUTE EVENTS THIS SHIFT. PT REMAINS A&OX4, ABLE TO COMMUNICATE NEEDS W/ STAFF. HR 80'S. NSR ON TELE W/ MULTIPLE CONVERSIONS IN AND OUT OF AFIB. SBP 110'S. REPORTS LEFT SIDED CHEST/RIB PAIN, SHARP STABBING PAIN; MANAGED PER EMAR. SPO2 >90% ON RA, 2L O2 WHILE SLEEPING. AFEBRILE. TWO EPISODES OF NAUSEA/VOMITING, MEDICATED W/ ZOFRAN PER EMAR. PT ABLE TO INDEPENDENTLY REPOSITION HERSELF IN BED. NO NEEDS AT THIS TIME. CALL LIGHT WITHIN REACH, BED IN LOWEST POSITION.
--- NOTE | 2023-06-11 11:02 | NUR ---
LATE NOTE. ASSUMED CARE OF PT AT ABOUT 0710. PT HAS BEEN DOING WELL THIS MORNING OUTSIDE OF NEW NAUSEA THAT APPEARED LAST NIGHT. PAIN HAS BEEN BETTER MANAGED ON CURRENT MEDICATION REGIMEN BUT REMAINS EVER PRESENT. PT AND THIS NURSE BELIEVE THAT NAUSEA IS PRIMARILY CAUSED BY NEW PERCOCET. PT DISCUSSED WITH DR. KAPOOR, RECOMMENDED GIVING ZOFRAN ~20 MINUTES BEFORE PO PAIN MEDICATION ADMINISTRATION. PT HAS HAD DECREASED PO FOOD INTAKE THIS MORNING DUE TO NAUSEA. BED LOCKED IN LOWEST POSITION. CALL LIGHT LEFT WITHIN REACH.
[2023-06-11 16:13] VITALS: BP 121/66
--- NOTE | 2023-06-11 17:03 | NUR ---
SHIFT SUMMARY. PT AOX4, PLEASANT, COOPERATIVE WITH CARE. HAS HAD A PRETTY GOOD DAY PAIN GRACIA. AFTER SWITCHING ZOFRAN TO Q4 PRN TO GIVE ALONGSIDE PRN PERCOCET PT REPORTS FEELING NO NAUSEA TODAY AND THAT HER PAIN IS MUCH BETTER THAN IT HAS BEEN. RUNNING NSR WITH NO REPORTED EVENTS THIS SHIFT THUS FAR. CONTINUES TO SAT WELL ON ROOM AIR. CALLS APPROPRIATELY FOR ANY ASSISTANCE NEEDED. BED LOCKED IN LOWEST POSITION. CALL LIGHT LEFT WITHIN REACH.
[2023-06-11 19:50] VITALS: BP 108/65
[2023-06-12 03:19] VITALS: BP 116/73
[2023-06-12 04:12] LABS: BASOPHILS ABSOLUTE AUTO 0.04 K/mm3 (0.00-0.23); BASOPHILS PERCENT AUTO 0 % (0-2); EOSINOPHILS ABSOLUTE AUTO 0.18 K/mm3 (0.00-0.68); EOSINOPHILS PERCENT AUTO 1 % (0-6); Hematocrit 32.2 % (33.0-51.0); Hemoglobin 10.6 g/dL (11.5-16.0); IMMATURE GRAN ABSOLUTE AUTO 0.11 K/mm3 (0.00-0.10); IMMATURE GRAN PERCENT AUTO 1 % (0-1); LYMPHOCYTES ABSOLUTE AUTO 1.87 K/mm3 (0.84-5.20); LYMPHOCYTES PERCENT AUTO 14 % (21-46); MONOCYTES ABSOLUTE AUTO 1.22 K/mm3 (0.16-1.47); MONOCYTES PERCENT AUTO 9 % (4-13); Mean Corpuscular HGB 29.5 pg (26.0-34.0); Mean Corpuscular HGB Conc 32.9 g/dL (31.5-36.5); Mean Corpuscular Volume 90 fL (80-100); Mean Platelet Volume 12.3 fL (9.1-12.4); NEUTROPHILS ABSOLUTE AUTO 10.24 K/mm3 (1.96-9.15); NEUTROPHILS PERCENT AUTO 75 % (41-73); Platelet Count 428 K/mm3 (150-400); RDW Coefficient Variation 13.9 % (11.7-14.2); RDW Standard Deviation 45.5 fL (35.1-46.3); Red Blood Cell Count 3.59 M/mm3 (3.80-5.20); White Blood Cell Count 13.66 K/mm3 (4.00-11.30)
[2023-06-12 04:23] LABS: Bun/Creatinine Ratio 22.2 (12.0-20.0); Calcium, Blood 8.7 mg/dL (8.5-10.1); Creatinine, Blood 0.77 mg/dL (0.40-1.00); Potassium, Blood 3.9 mmol/L (3.5-5.5)
--- NOTE | 2023-06-12 04:41 | NUR ---
END OF SHIFT NOTE NO ACUTE CHANGES THIS SHIFT. PT REMAINS A&OX4, PLEASANT AND COOPERATIVE WITH ALL CARE. HR 60'S, NSR ON TELE. SBP 100-110'S, DENIES CHEST PRESSURE; REPORTS PAIN IN LEFT SIDE OF CHEST/BACK, MANAGED PER EMAR. PT REPORTS IMPROVEMENT IN HER PAIN MANAGEMENT OVERNIGHT. N/V BRIEFLY AFTER SWALLOWING PILLS W/ ZOFRAN ADMINISTERED PER EMAR PRIOR TO PO MEDS, PT REPORTS THAT HER NAUSEA DOES SEEM TO BE IMPROVING. SPO2 >92% ON RA, DENIES SOB. ABLE TO REPOSITION SELF IN BED INDEPENDENTLY W/O DIFFICULTY. NO OTHER NEEDS AT THIS TIME. CALL LIGHT WITHIN REACH, BED IN LOWEST POSITION. WILL REPORT TO ONCOMING DAY SHIFT RN.
[2023-06-12 08:00] VITALS: BP 102/54
[2023-06-12 12:00] VITALS: BP 113/68
--- NOTE | 2023-06-12 14:43 | NUR ---
SHIFT SUMMARY PT AWAKE DURING SHIFT REPORT. ADMITTED FOR A-FIB WITH RVR, NOW RATE CONTROLLED. PT WAS TO D/C TO HOME, BUT HAD N/V WHEN DR KAPOOR CAME IN TO SEE HER THIS AM. MEDICATIONS ADJUSTED; NO FURTHER N/V TO PRESENT. PT TX'D TO MEDICAL UNIT VIA BED TO STAY ONE MORE NIGHT. PT TO F/U WITH RHEUMATOLGY OUTPT, NORMALLY ON SM DOSE OF 5MG HYDROCODONE. NOW REQUESTING 20 MG OXYCODONE. REPORTED NO BM SINCE ADMISSION; STARTED ON COLACE TODAY. UP WITH SBA TO [facility]. AT PRIOR TO START OF SHIFT AND ALSO ASSISTED PT IN BED BATH/SHOWER THIS AFTERNOON. MEDICATED WITH ZOFRAN 20 MINS PRIOR TO PAIN MEDICATION. TOLERATED WELL. DENIED FURTHER NEEDS. REPORT GIVEN TO NBA AMOS
[2023-06-12 15:43] VITALS: BP 136/71
--- NOTE | 2023-06-12 16:09 | NUR ---
TRANSFERRED NOTE: PATIENT ARRIVES TO ROOM AT AROUND 1410 FROM PCU RM 2. ASSUMED CARE OF PATIENT. PATIENT A/OX4. PATIENT ORIENTATED TO ROOM AND CALL LIGHTS. CALM, PLEASANT AND COOPERATIVE c CARE PROVIDED. PIV TO RAC AND POWERGLIDE TO BRENDA SALINE LOCKED. NO NEW CHANGES IN PATIENT CONDITION SINCE ARRIVED TO UNIT. VITAL SIGNS REVIEWED. FAMILY AT BEDSIDE. CALL LIGHT IN REACH.
[2023-06-12 20:09] VITALS: BP 151/74
[2023-06-13 04:21] VITALS: BP 102/59
[2023-06-13 04:50] LABS: BASOPHILS ABSOLUTE AUTO 0.03 K/mm3 (0.00-0.23); BASOPHILS PERCENT AUTO 0 % (0-2); EOSINOPHILS PERCENT AUTO 0 % (0-6); Hematocrit 31.2 % (33.0-51.0); Hemoglobin 10.3 g/dL (11.5-16.0); IMMATURE GRAN ABSOLUTE AUTO 0.07 K/mm3 (0.00-0.10); IMMATURE GRAN PERCENT AUTO 1 % (0-1); LYMPHOCYTES PERCENT AUTO 9 % (21-46); MONOCYTES ABSOLUTE AUTO 0.86 K/mm3 (0.16-1.47); MONOCYTES PERCENT AUTO 6 % (4-13); Mean Corpuscular Volume 88 fL (80-100); Mean Platelet Volume 11.7 fL (9.1-12.4); NEUTROPHILS ABSOLUTE AUTO 12.64 K/mm3 (1.96-9.15); NEUTROPHILS PERCENT AUTO 85 % (41-73); Platelet Count 469 K/mm3 (150-400); RDW Coefficient Variation 13.9 % (11.7-14.2); RDW Standard Deviation 44.4 fL (35.1-46.3); Red Blood Cell Count 3.55 M/mm3 (3.80-5.20)
--- NOTE | 2023-06-13 05:02 | NUR ---
SHIFT SUMMARY ILIANA IS ALERT AND FULLY ORIENTED THIS SHIFT, SHE IS PLEASANT AND COOPERATIVE. PT REQUIRES ZOFRAN PRIOR TO MEDICATING FOR PAIN TO PREVENT NAUSEA. PAIN MANAGEMENT IS ONGOING FOR THIS PATIENT. IV IN THE PATIENTS RIGHT ARM CAME OUT DURING THE SHIFT D/T NORMAL MOVEMENT, POWERGLIDE IN THE BRENDA IS STILL PATENT. NO ACUTE EVENTS THIS SHIFT. PT RESTING IN BED IN A LOW POSITION WITH THE CALL LIGHT IN REACH.
[2023-06-13 05:19] LABS: Bun/Creatinine Ratio 20.7 (12.0-20.0); Calcium, Blood 8.6 mg/dL (8.5-10.1); Creatinine, Blood 0.68 mg/dL (0.40-1.00); Potassium, Blood 4.1 mmol/L (3.5-5.5)
[2023-06-13 07:35] VITALS: BP 113/62
--- NOTE | 2023-06-13 16:59 | NUR ---
SHIFT SUMMARY: NO NEW ACUTE CHANGES IN PATIENT CONDITION THIS SHIFT. PATIENT A/OX4, PLEASANT AND COOPERATIVE c CARE PROVIDED. PATIENT STILL ON TELE, SR HR IN THE 60'S BPM. PATIENT DENIES CHEST PRESSURE; REPORTS PAIN 5-6/10 TO LEFT SIDE OF CHEST/BACK, MEDICATED c PRN PAIN MEDS PER EMAR c GOOD EFFECT. PATIENT MEDICATED c ZOFRAN PRIOR TO MEDICATING FOR PAIN. PER PATIENT "IT HAS BEEN WORKING WELL AND NO NAUSEA TODAY." PATIENT REPORTS BEING "CONSTIPATED". PATIENT REFUSED, METAMUCIL THIS AM. PER PATIENT "I DON'T LIKE THE TASTE IT MAKES ME GAG." PATIENT RECEIVED OT DOSE OF MIRALX THIS SHIFT. EDUCATE PATIENT REGARDING PAIN AND NAUSEA MEDS IT CAUSE DECREASES IN GASTRIC MOTILITY SPECIALLY REQUIRING 20 MG OF OXYCODONE EVERY 4 HRS. PATIENT VERBALIZED UNDERSTANDING, PER PATIENT "IT'S OKAY NEXT TIME WHEN I ASK YOU FOR PAIN MEDICATION YOU CAN GIVE ME 10 MG OF OXYCODONE INSTEAD OF 20 MG, WE CAN TRY THAT FOR NOW AND WILL SEE IF WORKS. I JUST NEED TO POOP AND I WANT TO GO HOME TOMORROW." PATIENT FAMILY AT BEDSIDE T/O SHIFT. PATIENT RECEIEVED SCHEDULED MEDS PER EMAR. VITAL SIGNS REVIEWED. POWERGLIDE TO BRENDA SALINE LOCKED. CALL LIGHT IN REACH.
[2023-06-13 17:04] VITALS: BP 138/68
[2023-06-13 20:02] VITALS: BP 157/70
[2023-06-14 04:11] VITALS: BP 127/70
--- NOTE | 2023-06-14 04:12 | NUR ---
SHIFT SUMMARY 68 YR F ADMITTED ON 06/07/23 FOR AFIB/RVR. FULL CODE. NO ACUTE CHANGES THIS SHIFT. PT PAIN IS BEING CONTROLLED W/ 10 MG OXY RATHER THAN 20 MG THAT SHE HAS PREVIOUSLY BEEN GETTING. SHE STATES THAT IT DOES NOT WORK WELL BUT IT IS ADEQUATE AND SHE DOES NOT WANT TO CONTINUE TO BE CONSTIPATED. PT HAS AGREED TO DRINK SOME PRUNE JUICE W/ BUTTER IN IT IN AN EFFORT TO EASE HER CONSTIPATION. WILL CONTINUE TO MONITOR AND DOCUMENT WHEN A BM IS ACHEIVED.
[2023-06-14 05:00] LABS: BASOPHILS ABSOLUTE AUTO 0.03 K/mm3 (0.00-0.23); BASOPHILS PERCENT AUTO 0 % (0-2); EOSINOPHILS ABSOLUTE AUTO 0.01 K/mm3 (0.00-0.68); EOSINOPHILS PERCENT AUTO 0 % (0-6); Hematocrit 32.8 % (33.0-51.0); Hemoglobin 10.6 g/dL (11.5-16.0); IMMATURE GRAN ABSOLUTE AUTO 0.12 K/mm3 (0.00-0.10); IMMATURE GRAN PERCENT AUTO 1 % (0-1); LYMPHOCYTES PERCENT AUTO 13 % (21-46); MONOCYTES ABSOLUTE AUTO 1.39 K/mm3 (0.16-1.47); MONOCYTES PERCENT AUTO 8 % (4-13); Mean Corpuscular HGB 29.1 pg (26.0-34.0); Mean Corpuscular HGB Conc 32.3 g/dL (31.5-36.5); Mean Corpuscular Volume 90 fL (80-100); Mean Platelet Volume 11.7 fL (9.1-12.4); NEUTROPHILS ABSOLUTE AUTO 13.92 K/mm3 (1.96-9.15); NEUTROPHILS PERCENT AUTO 78 % (41-73); Platelet Count 572 K/mm3 (150-400); RDW Coefficient Variation 14.1 % (11.7-14.2); RDW Standard Deviation 46.4 fL (35.1-46.3); Red Blood Cell Count 3.64 M/mm3 (3.80-5.20); White Blood Cell Count 17.87 K/mm3 (4.00-11.30)
[2023-06-14 07:41] VITALS: BP 112/60
[2023-06-14] MEDS ORDERED: Amiodarone HCl200 MG PO (11:13)
[2023-06-14] MEDS ORDERED: MIRALAX17 GM PO (11:13)
[2023-06-14] MEDS ORDERED: ONDA4ODT MM (11:14)
[2023-06-14] MEDS ORDERED: Prednisone10 MG PO (11:21)
--- NOTE | 2023-06-14 12:55 | NUR ---
SHIFT/DISCHARGE SUMMARY: NO NEW ACUTE CHANGES IN PATIENT CONDITION THIS SHIFT. PATIENT A/OX4. CALM, PLEASANT, AND COOPERATIVE c CARE PROVIDED. PATIENT DENIES CHEST PRESSURE, SOB, N/V AND DIZZINESS. PATIENT STILL ON TELE, SR HR IN THE 60'S BPM. PATIENT HAD LARGE FORMED BROWN BM THIS SHIFT. PATIENT REPORTS "FEELING SO MUCH BETTER AFTER BM." PAIN TO L SIDE OF CHEST/BACK, WELL MANAGE c PRN 10 MG OXYCODONE. PATIENT IS EATING AND DRINKING WELL, AMBULATES TO BATHROOM INDEPENDENTLY. PATIENT RECEIVED IV ABX AND SCHEDULED MEDS PER EMAR. VITAL SIGNS REVIEWED. POWERGLIDE TO BRENDA MONIQUE'Keiko. PATIENT DISCHARGE HOME. DISCHARGE INSTRUCTIONS PACKET GIVEN TO PATIENT. EDUCATE PATIENT REGARDING ADMITTING DX'S OF AFIV c RVR, WHICH RESSOLVE AND COVERTED TO NSR, S/S, TX, NEW PRESCRIBED MEDS, SELF CARE, TO FOLLOW UP c RA AND PCP. PATIENT VERBALIZED UNDERSTANDING AND NO FURTHER QUESTIONS. [place] HARD SCRIPTS GIVEN TO PATIENT AND RX WAS FAXED TO PATIENT PREFERRED PHARMACY ([facility]). ALL PATIENT PERSONAL BELONGINGS WERE SENT HOME c THE PATIENT. PATIENT LEFT THE ROOM AT AROUND 1245 AND WAS TRANSPORTED VIA WHEELCHAIR BY PERSONAL CARE SERVICE PROVIDER STAFF TO PATIENT ENTRANCE.
== END 2023-06-14 12:53 | disposition home or self-care (01) | DRG 308 ==
LOC: ER 18:30 → PCU 23:44 → MEDS 23:44 → PCU 06-08 00:06 → MEDS 06-12 14:10 → ENPENDDIS 06-14 10:53 → MEDS 06-14 12:53
PROVIDERS: Emergency Medicine; Internal Medicine; ADMIT Internal Medicine
PROC: 3E03329 Introduction of Other Anti-infective into Peripheral Vein, Percutaneous Approach (ICD-10-PCS; 2023-06-07)
PROC: 0W9B3ZX Drainage of Left Pleural Cavity, Percutaneous Approach, Diagnostic (ICD-10-PCS; principal; 2023-06-08)
DX: I48.0 Paroxysmal atrial fibrillation (principal); A41.9 Sepsis, unspecified organism; J18.9 Pneumonia, unspecified organism; J96.01 Acute respiratory failure with hypoxia; I30.0 Acute nonspecific idiopathic pericarditis; K52.1 Toxic gastroenteritis and colitis; I31.39 Other pericardial effusion (noninflammatory); J98.11 Atelectasis; J91.8 Pleural effusion in other conditions classified elsewhere; I48.92 Unspecified atrial flutter; T50.4X5A Adverse effect of drugs affecting uric acid metabolism, initial encounter; I10 Essential (primary) hypertension; E78.5 Hyperlipidemia, unspecified; K59.00 Constipation, unspecified; G89.29 Other chronic pain; D75.839 Thrombocytosis, unspecified; D72.829 Elevated white blood cell count, unspecified; T38.0X5A Adverse effect of glucocorticoids and synthetic analogues, initial encounter; Z88.8 Allergy status to other drugs, medicaments and biological substances; Z88.6 Allergy status to analgesic agent; Z87.891 Personal history of nicotine dependence; Z11.52 Encounter for screening for COVID-19
CPT/HCPCS: 0241U; 32555; 36415; 71045; 71260; 73090; 80048; 80053; 80069; 81001; 83605; 83615; 83735; 83880; 84100; 84157; 84439; 84443; 84484; 85025; 85027; 85379; 85520; 85610; 85730; 87040; 87070; 87075; 87205; 87252; 87254; 88108; 88305; 88341; 88342; 89051; 93005; 93010; 94664; 94760; 96361; 96365; 96368; 96375; 96376; 99291-25; A9270; C9113; J0153; J0282; J0456; J0696; J1644; J2405; J3010; J7030; J7040; J7050; J7060; J7120; J7512; Q9967

== ENCOUNTER 2023-09-08 06:46 | Inpatient (IN) | payer OTHER ==
[~2023-09-08] VITALS: Ht 170.2 cm; Wt 71.1 kg
[~2023-09-08 06:46] MED LIST changes: +Amiodarone HCl200 MG PO; +COLCRYS0.6 M1 PO; +MIRALAX17 GM PO; +ONDA4ODT MM; +Prednisone10 MG PO; +Simvastatin20 MG PO
[2023-09-08 08:30] LABS: BASOPHILS ABSOLUTE AUTO 0.07 K/mm3 (0.00-0.23); BASOPHILS PERCENT AUTO 0 % (0-2); EOSINOPHILS ABSOLUTE AUTO 0.01 K/mm3 (0.00-0.68); EOSINOPHILS PERCENT AUTO 0 % (0-6); Hemoglobin 15.4 g/dL (11.5-16.0); IMMATURE GRAN ABSOLUTE AUTO 0.06 K/mm3 (0.00-0.10); IMMATURE GRAN PERCENT AUTO 0 % (0-1); LYMPHOCYTES ABSOLUTE AUTO 2.17 K/mm3 (0.84-5.20); LYMPHOCYTES PERCENT AUTO 14 % (21-46); MONOCYTES ABSOLUTE AUTO 1.52 K/mm3 (0.16-1.47); MONOCYTES PERCENT AUTO 10 % (4-13); Mean Corpuscular HGB 30.6 pg (26.0-34.0); Mean Corpuscular HGB Conc 34.2 g/dL (31.5-36.5); Mean Corpuscular Volume 89 fL (80-100); Mean Platelet Volume 12.4 fL (9.1-12.4); NEUTROPHILS PERCENT AUTO 76 % (41-73); Platelet Count 218 K/mm3 (150-400); RDW Coefficient Variation 14.4 % (11.7-14.2); RDW Standard Deviation 46.7 fL (35.1-46.3); Red Blood Cell Count 5.04 M/mm3 (3.80-5.20); White Blood Cell Count 15.93 K/mm3 (4.00-11.30)
[2023-09-08 08:51] LABS: Bun/Creatinine Ratio 16.7 (12.0-20.0); Calcium, Blood 9.3 mg/dL (8.5-10.1); Creatinine, Blood 0.72 mg/dL (0.40-1.00); Potassium, Blood 3.5 mmol/L (3.5-5.5)
[2023-09-08] MEDS ORDERED: PrednisoLONE Soln 15MG/5ML 5MLUDC Alcohol Free PO ONE (10:05)
[2023-09-08] MEDS ORDERED: Amiodarone HCl 200 MG Tab PO ONE (10:05)
[2023-09-08] MEDS ORDERED: HYDROcodone 5-APAP 325 TAB PO ONE (11:40)
[2023-09-08] MEDS ORDERED: FLU VACC QS2023-24(6MOS UP)/PF 60 MCG/0.5 ML SYRINGE IM SCH (13:15)
[2023-09-08] MEDS ORDERED: Acetaminophen 325 MG TABLET PO PRN (13:15)
[2023-09-08] MEDS ORDERED: Potassium Chloride 20 MEQ TabCR PO ONE ×2 (14:00→16:00)
[2023-09-08 14:44] VITALS: BP 116/83
[2023-09-08] MEDS ORDERED: HYDROcodone 5-APAP 325 TAB PO PRN (15:50)
[2023-09-08] MEDS ORDERED: Ketorolac Tromethamine 15mg Vial IV ONE (15:50)
[2023-09-08] MEDS ORDERED: Ondansetron HCl 2 MG / ML 2ML Vial IV PRN (15:50)
[2023-09-08] MEDS ORDERED: Amiodarone HCl 200 MG Tab PO SCH ×2 (16:00→21:00)
[2023-09-08] MEDS ORDERED: Trimethoprim/Sulfamethoxazole DS Tab PO SCH (16:00)
[2023-09-08 16:16] VITALS: BP 131/79
[2023-09-08 17:49] LABS: Free Thyroxine 1.17 ng/dL (0.70-1.60)
[2023-09-08 17:52] LABS: Triiodothyronine, Free 1.95 pg/mL (2.18-3.98)
--- NOTE | 2023-09-08 18:58 | NUR ---
Admit note Received report from RN in ED. Pt to room via harry, sba to bed. Pt and family oriented to room and call light; educated on fall risk and requested to call before going to bathroom. Pt alert, oriented x4; calm and cooperative with care. Pt able to make needs known. Pt reporting 6-8/10 chest pain, reports constant pressure with intermittent stabbing; medicated per emar. Discussed using toradol with Dr Vazquez and patient, pt refused with concern or acid reflux type symptoms. Tele on admission showing AFlutter 140-150; pt daughter got patient up to bathroom where hr 180-190 then converted to sinus 70-80's; EKG showing STEMI; notified Dr Vazquez who reviewed and states to continue treatment as planned. Spo2 >90% on ra, breathing evening and unlabored. Abd soft, nontend, BT bt t/o; pt reports decreased appetite since stopping the steroids approx 1 week ago. Other vss. No other acute changes noted. Report given to oncoming rn.
[2023-09-08 20:16] VITALS: BP 107/64
[2023-09-08] MEDS ORDERED: Metoprolol Tartrate 25 MG Tab PO SCH (21:00)
[2023-09-09 00:49] VITALS: BP 98/63
[2023-09-09 04:10] VITALS: BP 108/61
[2023-09-09 04:24] LABS: BASOPHILS ABSOLUTE AUTO 0.05 K/mm3 (0.00-0.23); BASOPHILS PERCENT AUTO 0 % (0-2); EOSINOPHILS ABSOLUTE AUTO 0.02 K/mm3 (0.00-0.68); EOSINOPHILS PERCENT AUTO 0 % (0-6); Hematocrit 42.3 % (33.0-51.0); Hemoglobin 14.3 g/dL (11.5-16.0); IMMATURE GRAN ABSOLUTE AUTO 0.09 K/mm3 (0.00-0.10); IMMATURE GRAN PERCENT AUTO 1 % (0-1); LYMPHOCYTES PERCENT AUTO 13 % (21-46); MONOCYTES ABSOLUTE AUTO 2.01 K/mm3 (0.16-1.47); MONOCYTES PERCENT AUTO 11 % (4-13); Mean Corpuscular HGB 30.7 pg (26.0-34.0); Mean Corpuscular HGB Conc 33.8 g/dL (31.5-36.5); Mean Corpuscular Volume 91 fL (80-100); Mean Platelet Volume 11.7 fL (9.1-12.4); NEUTROPHILS ABSOLUTE AUTO 13.96 K/mm3 (1.96-9.15); NEUTROPHILS PERCENT AUTO 75 % (41-73); Platelet Count 227 K/mm3 (150-400); RDW Coefficient Variation 14.4 % (11.7-14.2); RDW Standard Deviation 47.7 fL (35.1-46.3); Red Blood Cell Count 4.66 M/mm3 (3.80-5.20); White Blood Cell Count 18.63 K/mm3 (4.00-11.30)
--- NOTE | 2023-09-09 05:05 | NUR ---
SHIFT SUMMARY A/Ox4 AND COOPERATIVE WITH CARE. ANSWERS QUESTIONS APPROPRIATELY AND ABLE TO MAKE HER NEEDS KNOWN. NO ACUTE EVENTS OVERNIGHT. CARDIAC, REMAINS IN SR 60-80 S THROUGHOUT THE SHIFT WITH SBP RANGING 90-100'S. CONTINUES TO REPORT CHRONIC LEFT CHEST PAIN. MD'S AWARE WITH PAIN MANAGED WELL WITH PRN PAIN MEDICATIONS. RESPIRATORY, MAINTAINS SPO2 >90% ON RA WITH NO REPORTS OF SOB OR DYSPNEA. GI/, ABLE TO AMBULATE TO BATHROOM TO VOID. NO BM THIS SHIFT. INTERMITTENT NAUSEA NOTED WITH PAIN MEDICATIONS. PRN ZOFRAN GIVEN PER EMAR WITH GOOD EFFECT. ECHO SCHEDULED FOR THIS AM. NO NEW ORDERS AT THIS TIME, WILL REPORT TO ONCOMING RN. VICKI GARRISON OF THIS NOTE.
[2023-09-09 05:32] LABS: Calcium, Blood 9.5 mg/dL (8.5-10.1); Creatinine, Blood 0.87 mg/dL (0.40-1.00); Magnesium, Blood 2.3 mg/dL (1.6-2.4); Potassium, Blood 4.2 mmol/L (3.5-5.5)
[2023-09-09 08:07] VITALS: BP 113/63
--- NOTE | 2023-09-09 08:24 | NUR ---
AM NOTE Pt alert, oriented x4; calm and cooperative, makes needs known. Pt up in room with sba, other ind. Pt reports chest pain, constant pressure, intermittent stabbing; medicated per emar; premedicated with zofran for nausea. Pt denies sob, dizziness and numb/tingling. Tele sinus aj to sinus 50-60's bp stable. No edema noted. Spo2 >90% on ra, breathing even and unlabored. Abd soft nontender +bt t/o. Other vss. Will continue to monitor. Plans for echo today
[2023-09-09] MEDS ORDERED: Lisinopril 10 MG Tab PO SCH (09:00)
[2023-09-09] MEDS ORDERED: PredniSONE 20 MG Tab PO SCH (09:00)
[2023-09-09] MEDS ORDERED: Enoxaparin 40 MG/0.4 ML SYR SC SCH (09:00)
[2023-09-09] MEDS ORDERED: Atorvastatin 10 MG Tab PO SCH (09:00)
[2023-09-09 12:03] VITALS: BP 99/51
[2023-09-09 16:55] VITALS: BP 134/57
--- NOTE | 2023-09-09 18:53 | NUR ---
Shift Summary No acute changes t/o shift. Clarified order for lopressor with Dr Ramirez, new orders to d/c. Vss. Will continue to monitor.
[2023-09-09 19:26] VITALS: BP 126/67
[2023-09-10 00:47] VITALS: BP 103/62
[2023-09-10 04:30] VITALS: BP 127/70
--- NOTE | 2023-09-10 05:27 | NUR ---
PT SUMMARY: NO ACUTE CHANGE FOR THE SHIFT, VITALS HAS BEEN STABLE, HRR REMAINED SR 50-60'S, SBPS 120'S, SATS ABOVE 95% ON RA, AFEBRILE. PT HAS SOME LEFT SIDED CHEST PAIN MEDICATED WITH NORCO ONCE WITH ZOFRAN. PT HAS BEEN CALLING APPROPRIATELY, INDEPENDENT IN THE ROOM. PT RESTED IN BED MOST OF THE SHIFT, TO POSSIBLY DISCHARGE IN AM IF STABLE. NO OTHER ISSUES ENCOUNTERED WILL REPORT TO ONCOMING SHIFT
[2023-09-10 07:57] VITALS: BP 116/68
[2023-09-10] MEDS ORDERED: Amiodarone HCl 200 MG Tab PO SCH (09:00)
[2023-09-10] MEDS ORDERED: PRED20 PO (10:18)
[2023-09-10] MEDS ORDERED: Amiodarone HCl200 MG PO (10:18)
[2023-09-10] MEDS ORDERED: SULFAMETHOXAZO1 EAC1 PO (10:19)
--- NOTE | 2023-09-10 13:03 | NUR ---
PT DISCHARGED THIS AM IV D/C'D BY EDGER LINER, DISCHARED PACKET WAS GONE OVER W/ PT AND DAUGHTER, ALL BELONGINGS WERE SENT HOME WITH THE PT. KEVON TEAGUE.
== END 2023-09-10 11:39 | disposition home or self-care (01) | DRG 309 ==
LOC: ER 06:46 → PCU 06:47
PROVIDERS: Emergency Medicine; ADMIT Internal Medicine
DX: I48.0 Paroxysmal atrial fibrillation (principal); I30.0 Acute nonspecific idiopathic pericarditis; G50.0 Trigeminal neuralgia; I10 Essential (primary) hypertension; M19.90 Unspecified osteoarthritis, unspecified site; I48.92 Unspecified atrial flutter; G89.29 Other chronic pain; E78.5 Hyperlipidemia, unspecified; K29.70 Gastritis, unspecified, without bleeding; Z87.891 Personal history of nicotine dependence; Z90.49 Acquired absence of other specified parts of digestive tract; Z90.710 Acquired absence of both cervix and uterus; Z88.8 Allergy status to other drugs, medicaments and biological substances; Z79.899 Other long term (current) drug therapy
CPT/HCPCS: 36415; 71046; 80048; 83735; 83880; 84439; 84443; 84481; 84484; 85025; 85651; 86140; 93005; 93010; 93308; 93321; 94760; 96365; 99285-25; A9270; J0282; J2405; J7060; J7512

== ENCOUNTER 2024-07-12 08:26 | Emergency (ER) | payer OTHER ==
[~2024-07-12] VITALS: Ht 172.7 cm; Wt 83.9 kg
[~2024-07-12 08:26] MED LIST changes: +PRED20 PO; +SULFAMETHOXAZO1 EAC1 PO
[2024-07-12] MEDS ORDERED: Diphth,Pertuss(Acell),Tet Vac 0.5 ML VIAL IM ONE (09:15)
[2024-07-12] MEDS ORDERED: ACET500 PO (12:18)
[2024-07-12 12:43] VITALS: BP 125/87
== END 2024-07-12 12:43 | disposition home or self-care (01) ==
LOC: ER 08:26
DX: S63.501A Unspecified sprain of right wrist, initial encounter (principal); W10.9XXA Fall (on) (from) unspecified stairs and steps, initial encounter; I10 Essential (primary) hypertension; E78.5 Hyperlipidemia, unspecified; I48.0 Paroxysmal atrial fibrillation; Z88.6 Allergy status to analgesic agent; Z88.8 Allergy status to other drugs, medicaments and biological substances; Z79.899 Other long term (current) drug therapy; F17.210 Nicotine dependence, cigarettes, uncomplicated
CPT/HCPCS: 70450; 71250; 73590; 73610; 99284-25

== ENCOUNTER 2025-02-08 08:47 | Day surgery (SDC) | payer OTHER ==
[~2025-02-08] VITALS: Ht 170.2 cm; Wt 73.9 kg
[~2025-02-08 08:47] MED LIST changes: +ACET500 PO
[2025-02-08] MEDS ORDERED: FARXIGA10 MG (09:30)
[2025-02-08] MEDS ORDERED: LOSARTAN POTASS25 M2 (09:30)
[2025-02-08] MEDS ORDERED: ATOR10 (09:30)
[2025-02-08] MEDS ORDERED: ELIQUIS5 M3 (09:30)
[2025-02-08] MEDS ORDERED: METOPROLOL SUCC25 MG (09:30)
[2025-02-08] MEDS ORDERED: [UNRECOGNIZED DRUG - OTHER] (09:31)
[2025-02-08] MEDS ORDERED: PAXIL2010 (09:31)
[2025-02-08] MEDS ORDERED: OMEP20ER (09:32)
[2025-02-08] MEDS ORDERED: Vitamin D1000 UNI1 (09:34)
[2025-02-08] MEDS ORDERED: PROBIOTIC1 EA13 (09:35)
[2025-02-08 11:41] VITALS: BP 152/65
== END 2025-02-08 11:45 | disposition home or self-care (01) ==
LOC: ORSCSDS 08:47
PROVIDERS: Specialist
PROC: 0DBL8ZX Excision of Transverse Colon, Via Natural or Artificial Opening Endoscopic, Diagnostic (ICD-10-PCS; principal; 2025-02-08 10:15)
PROC: 0DBK8ZX Excision of Ascending Colon, Via Natural or Artificial Opening Endoscopic, Diagnostic (ICD-10-PCS; principal; 2025-02-08 10:15)
DX: Z12.11 Encounter for screening for malignant neoplasm of colon (principal); D12.2 Benign neoplasm of ascending colon; D12.3 Benign neoplasm of transverse colon; K64.8 Other hemorrhoids; K57.30 Diverticulosis of large intestine without perforation or abscess without bleeding; E78.5 Hyperlipidemia, unspecified; I48.0 Paroxysmal atrial fibrillation; I31.9 Disease of pericardium, unspecified; Z79.01 Long term (current) use of anticoagulants; Z79.899 Other long term (current) drug therapy
CPT/HCPCS: 88300; J2704; J7120